=== PATIENT | female | born 1950 | race Caucasian/White ===

== ENCOUNTER → 2016-07-05 | Outpatient (CLI) | payer MEDICARE, OTHER ==
[~2016-07-05] MED LIST: AMIT25TA9 PO; ATOR40TA59 PO; CALC-723 PO; CTLP20T PO; ESTR1TAB24 PO; GBPN300C PO; LISI1TAB6 PO; NF-FLON16G; SUMA25TA3 PO
--- NOTE | 2016-07-06 18:06 | Diagnostic Imaging Report ---
INDICATION: Screening mammogram. COMPARISON: 05/29/2013 through 06/29/2015. The current study was also evaluated with a Computer Aided Detection (CAD) system. FINDINGS: CC and MLO views of the breasts were obtained. There are scattered fibroglandular densities that could obscure a lesion on mammography. There is no dominant mass, suspicious cluster of microcalcifications or other evidence to indicate malignancy. There has been no significant change from prior mammograms. IMPRESSION: Stable mammogram without evidence of malignancy. ACR BI-RADS Category 1: Negative. Result letter will be mailed to the patient. Follow-up: Yearly mammogram NOTE: Keep in mind that about 10% of breast cancers will not be identified on mammography. Further evaluation of a palpable mass not seen on mammography should be based on clinical grounds. Dictated by: Dictated on workstation # [id number]
== END ==
LOC: RAD 14:20
PROVIDERS: ATTEND Family Medicine
DX: Z12.31 Encounter for screening mammogram for malignant neoplasm of breast (principal)